=== PATIENT | male | born 1965 | race Caucasian/White ===

== ENCOUNTER 2016-12-09 16:54 | Inpatient (IN) | payer BC ==
[~2016-12-09] VITALS: Ht 170.2 cm; Wt 104.5 kg
[2016-12-09] MEDS ORDERED: AMLO1TAB36 PO (17:35)
[2016-12-09] MEDS ORDERED: DICL-235 PO (17:37)
[2016-12-09] MEDS ORDERED: RANI300T PO (17:39)
[2016-12-09] MEDS ORDERED: GLUC1CAP9 PO (17:40)
[2016-12-09] MEDS ORDERED: MENSCAP PO (17:41)
[2016-12-09] MEDS ORDERED: ASPI81TA85 PO (17:41)
[2016-12-09] MEDS ORDERED: B121000T PO (17:42)
[2016-12-09] MEDS ORDERED: NS 1,000 ML IV ONE (17:45)
[2016-12-09] MEDS ORDERED: ONDANSETRON 4MG/2ML VIAL (J2405) IV ONE (17:45)
[2016-12-09 18:17] LABS: MEAN CORPUSCULAR HEMOGLOBIN 29.3 pg (27.0-33.0); MEAN CORPUSCULAR HGB CONC 34.6 g/dl (32.0-36.5); MEAN CORPUSCULAR VOLUME 84.8 fl (80.0-96.0); PLATELET COUNT, AUTOMATED 223 k/mm3 (150-450); RED CELL DISTRIBUTION WIDTH 13.3 % (11.5-14.5); WHITE BLOOD COUNT 10.2 K/mm3 (4.0-10.0)
--- NOTE | 2016-12-09 18:34 | REP ---
CHEST, PA AND LATERAL: 12/09/2016. Clinical history: Near-syncope. No prior studies Findings: Lungs adequately inflated. No pleural effusion, lateral pleural thickening, apical scarring or pneumothorax. No infiltrate, atelectasis or mass. The heart, mediastinal, and hilar contours were grossly normal. Bony thorax with some marginal osteophytes without compression deformity. No free air under the diaphragm. Gas in the colon. Small bowel loops and the gastric air bubble without abnormal distension. Impression: 1. No acute cardiopulmonary change. Signed by Mikey Herrera MD 12/09/2016 08:30 P
[2016-12-09 18:40] LABS: ALBUMIN 3.5 GM/DL (3.2-5.2); ALKALINE PHOSPHATASE 65 U/L (45-117); ALT/SGPT 32 U/L (12-78); ANION GAP 10 MEQ/L (8-16); AST/SGOT 16 U/L (15-37); BILIRUBIN,DIRECT < 0.1 MG/DL (0.0-0.2); BILIRUBIN,TOTAL 0.3 MG/DL (0.2-1.0); BLOOD UREA NITROGEN 24 MG/DL (7-18); CALCIUM LEVEL 8.7 MG/DL (8.5-10.1); CARBON DIOXIDE LEVEL 22 MEQ/L (21-32); CHLORIDE LEVEL 111 MEQ/L (98-107); CREATININE FOR GFR 1.31 MG/DL (0.70-1.30); GLOMERULAR FILTRATION RATE > 60.0 (>56); GLUCOSE, FASTING 118 MG/DL (70-105); MAGNESIUM LEVEL 2.1 MG/DL (1.8-2.4); PHOSPHORUS LEVEL 3.4 MG/DL (2.5-4.9); POTASSIUM SERUM 3.9 MEQ/L (3.5-5.1); SODIUM LEVEL 143 MEQ/L (136-145)
[2016-12-09] MEDS ORDERED: ISOVUE-370 76% 100ML VIAL (Q9967) As Ordered ONE (20:06)
[2016-12-09] MEDS ORDERED: GASTROGRAFIN SOLUTION 30ML (Q9963) PO ONE ×2 (20:15)
[2016-12-09 20:18] LABS: BANDS 39 % (< 11); EOSINOPHILS 1 % (0-5)
[2016-12-09] MEDS ORDERED: MORPHINE 4 MG/ML 1ML SYRINGE IV ONE (23:15)
--- NOTE | 2016-12-09 23:20 | REPUSA ---
CT of the abdomen and pelvis with contrast Clinical statement: Pain. Technique: Multiple axial CT images were obtained from the base of the lungs through the floor of the pelvis utilizing 5 mm axial slices after administration of oral and nonionic intravenous contrast. C oronal and sagittal reconstructions were also obtained. Comparison: None. Findings: Chest: The visualized lung bases are clear. Abdomen: The liver, spleen, pancreas, kidneys, gallbladder, and adrenal glands are unremarkable. The aorta is within normal limits. There is no evidence of abdominal lymphadenopathy or ascites. Pelvis: The bowel is unremarkable, with no obstructive or inflammatory changes. The urinary bladder i s within normal limits. The other pelvic structures appear grossly intact. There is no evidence of pe lvic lymphadenopathy or ascites. Bones: There are no suspicious osseous abnormalities seen. Mild degenerative disc disease at L3/L4. Impression: Unremarkable CT examination of the abdomen and pelvis.
[2016-12-09] MEDS ORDERED: NS 1,000 ML IV SCH (23:28)
[2016-12-10] MEDS ORDERED: DICL75TA PO (00:03)
[2016-12-10] MEDS ORDERED: AMLO5CAP2 PO (00:03)
[2016-12-10] MEDS ORDERED: VITMTA PO (00:03)
[2016-12-10] MEDS ORDERED: RANI300T PO (00:03)
[2016-12-10] MEDS ORDERED: FLON50SP (00:03)
[2016-12-10] MEDS ORDERED: GLUC1CAP10 PO (00:03)
[2016-12-10] MEDS ORDERED: ASPI81TAEC PO (00:03)
[2016-12-10 01:15] VITALS: BP 139/82
[2016-12-10] MEDS: LR 1,000 ML IV SCH ×4 (01:40→21:00)
[2016-12-10] MEDS ORDERED: MORPHINE 2 MG/ML 1ML SYRINGE IV PRN (01:45)
[2016-12-10] MEDS ORDERED: ONDANSETRON 4MG/2ML VIAL (J2405) IV PRN (01:45)
--- NOTE | 2016-12-10 05:37 | ECGEPIP ---
Stationary ECG Study [facility] - ED Test Date: 2016-12-09 Pat Name: ALEJANDRO WALLS Department: Room: - Gender: M Cyber Security Administrator: chloe : 1965 Requested By: HILARY Pacheco Order Number: [id number] Reading MD: Jose A Lopez Measurements Intervals [place] Rate: 75 P: 15 PA: 157 QRS: 32 QRSD: 138 T: 1 QT: 375 QTc: 421 Interpretive Statements SINUS RHYTHM INDETERMINATE AXIS RIGHT BUNDLE BRANCH BLOCK NO PRIORS Electronically Signed On 12-10-2016 5:37:32 EDT by Jose A Lopez
[2016-12-10 08:00] VITALS: BP 132/68
[2016-12-10] MEDS ORDERED: KETOROLAC 30 MG/ML VIAL (J1885) IV PRN (11:15)
[2016-12-10] MEDS ORDERED: NORCO, ANEXSIA 5/325MG TABLET (HYDROcodone/ACETAMINOPHEN) PO PRN (11:15)
[2016-12-10] MEDS ORDERED: ACETAMINOPHEN TAB 650MG DOSE (2X325MG) PO PRN (11:15)
[2016-12-10] MEDS ORDERED: FLUTICASONE PROP 0.05% NASAL SPRAY 16 GM (FLONASE) PRN (11:15)
[2016-12-10 12:00] VITALS: BP 140/69
[2016-12-10] MEDS: amLODIPine 5 MG TAB PO SCH (12:00)
[2016-12-10] MEDS: ASPIRIN 81 MG ENTERIC TAB PO SCH (12:00)
[2016-12-10] MEDS: SENOKOT S TAB PO SCH ×2 (12:00→20:32)
[2016-12-10] MEDS: PANTOPRAZOLE 40MG INJ (PROTONIX) (C9113) IV SCH (12:00)
[2016-12-10] MEDS: metroNIDAZOLE 500 MG in APPROPRIATE DILUENT 1 EA IV SCH ×3 (12:01→23:26)
[2016-12-10] MEDS: CIPROFLOXACIN 400 MG in APPROPRIATE DILUENT 1 EA IV SCH (13:55)
[2016-12-10] MEDS: HEPARIN SOD (PORCINE) 5000 UNITS/ML VIAL SC SCH ×2 (14:46→20:33)
[2016-12-10 16:00] VITALS: BP 115/61
[2016-12-10 20:00] VITALS: BP 115/65
[2016-12-11] VITALS: BP 140/69
[2016-12-11] MEDS: CIPROFLOXACIN 400 MG in APPROPRIATE DILUENT 1 EA IV SCH (01:02)
[2016-12-11] MEDS: metroNIDAZOLE 500 MG in APPROPRIATE DILUENT 1 EA IV SCH (05:18)
[2016-12-11] MEDS: HEPARIN SOD (PORCINE) 5000 UNITS/ML VIAL SC SCH (05:18)
[2016-12-11 07:42] LABS: MEAN CORPUSCULAR HEMOGLOBIN 29.5 pg (27.0-33.0); MEAN CORPUSCULAR HGB CONC 34.9 g/dl (32.0-36.5); MEAN CORPUSCULAR VOLUME 84.6 fl (80.0-96.0); RED CELL DISTRIBUTION WIDTH 13.2 % (11.5-14.5); WHITE BLOOD COUNT 5.2 K/mm3 (4.0-10.0)
[2016-12-11 08:00] VITALS: BP 165/80
[2016-12-11 08:03] LABS: ANION GAP 6 MEQ/L (8-16); BLOOD UREA NITROGEN 11 MG/DL (7-18); CALCIUM LEVEL 8.2 MG/DL (8.5-10.1); CARBON DIOXIDE LEVEL 29 MEQ/L (21-32); CHLORIDE LEVEL 108 MEQ/L (98-107); CREATININE FOR GFR 0.92 MG/DL (0.70-1.30); GLOMERULAR FILTRATION RATE > 60.0 (>56); GLUCOSE, FASTING 90 MG/DL (70-105); MAGNESIUM LEVEL 1.9 MG/DL (1.8-2.4); POTASSIUM SERUM 3.8 MEQ/L (3.5-5.1); SODIUM LEVEL 143 MEQ/L (136-145)
[2016-12-11] MEDS: ASPIRIN 81 MG ENTERIC TAB PO SCH (08:46)
[2016-12-11] MEDS: PANTOPRAZOLE 40MG INJ (PROTONIX) (C9113) IV SCH (08:46)
[2016-12-11 08:47] VITALS: BP 140/69
[2016-12-11] MEDS: LR 1,000 ML IV SCH (08:47)
[2016-12-11] MEDS: amLODIPine 5 MG TAB PO SCH (08:47)
[2016-12-11] MEDS: SENOKOT S TAB PO SCH (08:47)
--- NOTE | 2016-12-11 19:24 | CR ---
DATE OF History and Physical: 12/09/2016 REASON FOR CONSULTATION: Abdominal pain. HISTORY OF PRESENT ILLNESS: The patient is a 51-year-old male who presented to the emergency room late in the evening of December 09 with chief complaint of nausea , vomiting, and abdominal pain. He claims that these all started early in the morning. He had decreased appetite, abdominal cramping, distension, brown, loose stools with nausea. No vomiting. When he came into emergency room he had a CT scan done, which was read as normal; however, on review he definitely had dilated loops of bowel; therefore, I was called to evaluate. His labs were normal. Vital signs were stable; however, he did have a very abnormal CT as well as distension and nausea. He denies having any symptoms like this in the past. No sick contacts. No recent travel. No recent changes in diet or eating out. He has had umbilical hernia repair when he was about 2 years old. No other abdominal surgeries. PAST MEDICAL HISTORY: 1. Gastroesophageal reflux disease (GERD). 2. Hypertension. PAST SURGICAL HISTORY: 1. Umbilical hernia repair. 2. Orthopedic repair to bilateral elbows and right knee. 3. Lasik eye surgery. ALLERGIES: HYDROCHLOROTHIAZIDE, VALSARTAN. MEDICATIONS: Please see medication reconciliation. REVIEW OF SYSTEMS: Pertinent positives and negatives as stated in the history of present illness (HPI). PHYSICAL EXAMINATION: GENERAL: Alert and oriented times three in no acute distress. VITAL SIGNS: Temperature 97.7, pulse 74, respirations 18, blood pressure 124/68, pulse oximetry 95% on room air. HEENT: Pupils equally round and reactive light and accommodation. HEART: S1, S2, regular rate and rhythm. LUNGS: Clear to auscultation bilaterally. ABDOMEN: Soft, distended, slight diffuse tenderness to palpation. No rebounding or guarding. No peritoneal signs. EXTREMITIES: No clubbing, cyanosis, or edema. LABORATORY DATA: White count 10.2, hemoglobin 16.4, potassium 3.9, lactic acid 0.8, creatinine 1.31. IMAGING STUDIES: CT abdomen and pelvis shows unremarkable CT of the abdomen and pelvis. Bowel was unremarkable. No obstructive or inflammatory changes; however, on personal review the stomach is extremely dilated as well as multiple dilated loops of small bowel of greater than 4.5 cm in diameter. ASSESSMENT AND PLAN: The patient is, again, a 51-year-old male who presents with crampy abdominal pains, diarrhea, and nausea. Has signs of ileus versus partial bowel obstruction on CT scan. Recommendation is to keep him nothing by mouth, place an nasogastric (NG) tube, treat with intravenous (IV) fluids, antibiotics, and see if he has return of bowel function. With normal lactic acid, normal labs, and being afebrile, I am less likely to suspect that this a bowel obstruction and more likely related to an ileus, possibly related to viral versus bacterial cause. We will continue with supportive care for now. If he continues to improve, we will slowly advance his diet; however, if he show signs of decline, then we will discuss exploratory surgery with him when the time comes. BARRERA
[2016-12-12 00:07] LABS: Lyme Disease IgG/IgM Antibodie <0.91 ISR (0.00-0.90); Lyme Disease IgM Ab Quantitati <0.80 index (0.00-0.79)
--- NOTE | 2016-12-12 02:36 | DSES ---
DATE OF ADMISSION: 12/09/2016 DATE OF DISCHARGE: 12/11/2016 ADMISSION DIAGNOSIS: Ileus versus partial small bowel obstruction. DISCHARGE DIAGNOSIS: Ileus likely secondary to a bacterial or viral enteritis. HOSPITAL COURSE: The patient is a 51-year-old male who was admitted late in the evening of 12/09 with a diagnosis of likely partial small bowel obstruction versus ileus. A CT scan was read as normal. However, when the emergency room (ER) evaluated themselves they noted there were dilated bowel loops and because of his abdominal distention and cramping, they asked if I would admit him. He was admitted late in the evening of 12/09. I saw him first thing morning 12/10. By this time he was still nauseous, no vomiting. Still having passing flatus and having liquid stools, but his abdomen was very distended. I asked them to place a nasogastric (NG) tube and told them he could had clear liquid diet for comfort. He took a few sips of water prior to the NG tube placement and had a large emesis after which time he felt much improved. He declined the NG tube and just stayed on sips of water. A few hours after that he had two very large bowel movements and all of his abdominal cramping and distention were immediately improved. I advanced him to a soft diet and watched him overnight. This morning, 12/11, again his labs are improved. No nausea, no vomiting, tolerating diet. No belly pains of any kind. I advanced him to a regular diet and plan to discharge him home. No new medications. This was likely viral or bacterial in nature. Continue with all home medications. Followup with primary care physician and myself as needed.
== END 2016-12-11 12:00 | disposition home or self-care (01) | DRG 247 ==
LOC: M ED 18:41 → M ED INP 23:38 → M PED 12-10 01:15
PROVIDERS: ADMIT Surgery; ATTEND Surgery
DX: K56.7 Ileus, unspecified (principal); I10 Essential (primary) hypertension; A08.4 Viral intestinal infection, unspecified; K21.9 Gastro-esophageal reflux disease without esophagitis; Z88.8 Allergy status to other drugs, medicaments and biological substances; Z79.899 Other long term (current) drug therapy

== ENCOUNTER → 2020-03-20 | Outpatient (CLI) | payer BC ==
[~2020-03-20] MED LIST: ACET650T61 PO; AMLO1TAB37 PO; AMLO5CAP44 PO; AMLO5CAP45; ASPI81TA86 PO; ASPI81TAEC PO; B121000T PO; DICL-235 PO; DICL75TA PO; E-Z-GAS II EFFERVESCENT PACKET (SODIUM BICARB./CITRIC ACID/SIMETHICONE) As Ordered ONE; E-Z-HD 98% w/w 340GM SUSP BTL As Ordered ONE; E-Z-PAQUE 96% w/w SUSP 176GM BTL As Ordered ONE; FLON50SP; GLUC1CAP10 PO; GLUC1CAP9 PO; MENSCAP PO; RANI300T PO; VITMTA PO
--- NOTE | 2020-03-27 08:53 | REP ---
ESOPHAGRAM This procedure was performed by WILLIS Centeno, under the direct supervision of Dr. Fragoso. The images were reviewed with Dr. Fragoso prior to dictation. A single view PA chest x-ray is submitted as a director of maintenance film. The superior mediastinal structures are midline. The heart size is within normal limits, and the lungs appear clear. Liquid barium and gas-producing granules were given in the erect position, as well as liquid barium in the prone oblique position in order to perform a double-contrast esophagram examination. The oral and pharyngeal stages of deglutition were unremarkable. Esophageal transport is prompt and efficient. There is no esophagitis, stricture, or mucosal ring. There is a small hiatal hernia. No gastroesophageal reflux was demonstrated during this exam. IMPRESSION: Small hiatal hernia. 0.2 minutes of fluoroscopy time was utilized for this procedure. This procedure has been dictated by WILLIS Centeno with Dr. Fragoso. [facility]
== END ==
LOC: M RAD 10:06
PROVIDERS: ATTEND Nurse Practitioner
DX: R47.02 Dysphasia (principal); K44.9 Diaphragmatic hernia without obstruction or gangrene

== ENCOUNTER → 2020-04-12 | Outpatient (CLI) | payer BC ==
[~2020-04-12] MED LIST changes: -E-Z-GAS II EFFERVESCENT PACKET (SODIUM BICARB./CITRIC ACID/SIMETHICONE) As Ordered ONE; -E-Z-HD 98% w/w 340GM SUSP BTL As Ordered ONE; -E-Z-PAQUE 96% w/w SUSP 176GM BTL As Ordered ONE
== END ==
LOC: M LABSMTC 09:34
PROVIDERS: ATTEND Anesthesiology
DX: Z01.812 Encounter for preprocedural laboratory examination (principal); Z20.828 Contact with and (suspected) exposure to other viral communicable diseases
CPT/HCPCS: C9803; U0003

== ENCOUNTER 2020-04-17 08:41 | Day surgery (SDC) | payer BC ==
[~2020-04-17] VITALS: Ht 170.2 cm; Wt 108.4 kg
[~2020-04-17 08:41] MED LIST changes: -ACET650T61 PO; +NS 1,000 ML IV ONE
[2020-04-17] MEDS ORDERED: fentaNYL 100 MCG/2 ML INJECTION (J3010) As Ordered ONE (09:37)
[2020-04-17] MEDS ORDERED: ACET650T61 PO (09:37)
[2020-04-17] MEDS ORDERED: LIDOCAINE 2% 100MG/5ML SDV (FOR ANES.) As Ordered ONE (09:37)
[2020-04-17] MEDS ORDERED: propofoL 200 MG/20 ML VIAL As Ordered ONE (09:37)
--- NOTE | 2020-04-17 10:13 | ROOR ---
Patient Name: Jag Gonzalez Procedure Date: 04/17/2020 9:53 AM Date of : 1965 Age: 55 Room: [facility] Gender: Male Note Status: Finalized Procedure: Upper GI endoscopy Indications: Dysphagia Providers: DO Lexx Arguelles MD: Hiren RENDON NP Requesting Provider: Medicines: Propofol per Anesthesia Complications: No immediate complications. Procedure: Pre-Anesthesia Assessment: - Prior to the procedure, a History and Physical was performed, and patient medications and allergies were reviewed. The patient is competent. The risks and benefits of the procedure and the sedation options and risks were discussed with the patient. All questions were answered and informed consent was obtained. Patient identification and proposed procedure were verified by the physician, the nurse, the anesthesiologist and the electrocardiographic technician in the endoscopy suite. Mental Status Examination: alert and oriented. Airway Examination: normal oropharyngeal airway and neck mobility. Respiratory Examination: clear to auscultation. CV Examination: normal. Prophylactic Antibiotics: The patient does not require prophylactic antibiotics. Prior Anticoagulants: The patient has taken no previous anticoagulant or antiplatelet agents. ASA Grade Assessment: II - A patient with mild systemic disease. After reviewing the risks and benefits, the patient was deemed in satisfactory condition to undergo the procedure. The anesthesia plan was to use monitored anesthesia care (MAC). Immediately prior to administration of medications, the patient was re-assessed for adequacy to receive sedatives. The heart rate, respiratory rate, oxygen saturations, blood pressure, adequacy of pulmonary ventilation, and response to care were monitored throughout the procedure. The physical status of the patient was re-assessed after the procedure. The Endoscope was introduced through the mouth, and advanced to the third part of duodenum. The upper GI endoscopy was accomplished without difficulty. The patient tolerated the procedure well. Findings: Localized minimal inflammation characterized by erosions and erythema was found in the prepyloric region of the stomach. Biopsies were taken with a cold forceps for Helicobacter pylori testing. Estimated blood loss was minimal. The Z-line was irregular. Biopsies were taken with a cold forceps for histology. Estimated blood loss was minimal. A small hiatal hernia was present. Impression: - Gastritis. Biopsied. - Z-line irregular. Biopsied. - Small hiatal hernia. Recommendation: - Patient has a contact number available for emergencies. The signs and symptoms of potential delayed complications were discussed with the patient. Return to normal activities tomorrow. Written discharge instructions were provided to the patient. - Return to my office at appointment to be scheduled. - Await pathology results. Jamaal Joseph DO 04/17/2020 10:12:47 AM Electronically signed by Jamaal Joseph DO Number of Addenda: 0 Note Initiated On: 04/17/2020 9:53 AM Estimated Blood Loss: Estimated blood loss was minimal.
[2020-04-17 10:34] VITALS: BP 140/80
== END 2020-04-17 10:49 | disposition home or self-care (01) ==
LOC: M OPP 08:41
PROVIDERS: ATTEND Surgery
DX: K29.70 Gastritis, unspecified, without bleeding (principal); K22.8 Other specified diseases of esophagus; K44.9 Diaphragmatic hernia without obstruction or gangrene; R13.10 Dysphagia, unspecified; I10 Essential (primary) hypertension; Z79.82 Long term (current) use of aspirin; Z79.899 Other long term (current) drug therapy; Z88.8 Allergy status to other drugs, medicaments and biological substances
CPT/HCPCS: 43239; 88305; J3010

== ENCOUNTER → 2021-11-05 | Outpatient (REF) ==
[~2021-11-05] MED LIST changes: +ACET650T61 PO; -AMLO5CAP45; +AMLO5CAP53; +ASPI-569 PO; -ASPI81TAEC PO; -NS 1,000 ML IV ONE
== END ==
LOC: M PLAIMG 13:21
PROVIDERS: ATTEND Internal Medicine
DX: M25.762 Osteophyte, left knee (principal); M17.12 Unilateral primary osteoarthritis, left knee; M25.861 Other specified joint disorders, right knee; M24.841 Other specific joint derangements of right hand, not elsewhere classified